=== PATIENT | male | born 1960 | race Caucasian/White ===

== ENCOUNTER 2018-12-09 09:54 | Day surgery (SDC) | payer OTHER | END 2018-12-09 15:00 | disposition home or self-care (01) | LOC: EDBD → AMB-ENDOS 09:54 | DX: D12.4 Benign neoplasm of descending colon (principal) ==

== ENCOUNTER 2019-03-15 13:15 | Inpatient (IN) | payer OTHER ==
[~2019-03-15] VITALS: Ht 172.7 cm; Wt 81.2 kg
[2019-03-15] MEDS ORDERED: [UNRECOGNIZED DRUG - OTHER] PO (14:38)
[2019-03-15] MEDS ORDERED: MICARDIS HCT 81 EAC1 PO (14:38)
[2019-03-15] MEDS ORDERED: DEPAKOTE ER500 MG PO (14:39)
[2019-03-15] MEDS ORDERED: DONEPEZIL HCL O10 MG PO (14:39)
[2019-03-16] MEDS ORDERED: FLUOXETINE HCL40 MG PO (10:04)
[2019-03-18] MEDS ORDERED: MIRALAX17 GM PO (11:50)
[2019-03-18] MEDS ORDERED: NEURONTIN800 MG PO (11:50)
[2019-03-18] MEDS ORDERED: TRAMADOL HCL50 MG PO (11:50)
[2019-03-18] MEDS ORDERED: TYLENOL EXTRA500 MG PO (11:50)
== END 2019-03-19 11:59 | disposition home or self-care (01) | DRG 355 ==
LOC: SURH 13:15 → O/R 03-16 07:32 → SURH 03-16 13:00
PROVIDERS: ADMIT Surgery
PROC: 0KXL0Z6 Transfer Left Abdomen Muscle, Transverse Rectus Abdominis Myocutaneous Flap, Open Approach (ICD-10-PCS; 2019-03-16)
PROC: 0KXK0Z6 Transfer Right Abdomen Muscle, Transverse Rectus Abdominis Myocutaneous Flap, Open Approach (ICD-10-PCS; 2019-03-16)
PROC: 0WUF4JZ Supplement Abdominal Wall with Synthetic Substitute, Percutaneous Endoscopic Approach (ICD-10-PCS; principal; 2019-03-16 13:00)
DX: K43.0 Incisional hernia with obstruction, without gangrene (principal); K42.0 Umbilical hernia with obstruction, without gangrene; I10 Essential (primary) hypertension; E78.49 Other hyperlipidemia; I25.10 Atherosclerotic heart disease of native coronary artery without angina pectoris; I25.2 Old myocardial infarction; K21.9 Gastro-esophageal reflux disease without esophagitis; K57.30 Diverticulosis of large intestine without perforation or abscess without bleeding; G47.33 Obstructive sleep apnea (adult) (pediatric); F32.89 Other specified depressive episodes; Z99.81 Dependence on supplemental oxygen

== ENCOUNTER 2022-02-11 11:17 | Outpatient (CLI) | payer OTHER ==
[~2022-02-11 11:17] MED LIST: DEPAKOTE ER500 MG PO; DONEPEZIL HCL O10 MG PO; FLUOXETINE HCL40 MG PO; MICARDIS HCT 81 EAC1 PO; MIRALAX17 GM PO; NEURONTIN800 MG PO; TRAMADOL HCL50 MG PO; TYLENOL EXTRA500 MG PO; [UNRECOGNIZED DRUG - OTHER] PO
== END 2022-02-11 11:20 | disposition home or self-care (01) ==
LOC: RAD 11:17
PROVIDERS: ATTEND Orthopaedic Surgery
DX: M25.569 Pain in unspecified knee (principal)